=== PATIENT | female | born 1970 | race African-American/Black ===

== ENCOUNTER 2017-03-16 00:34 | Emergency (ER) | payer OTHER ==
[2017-03-16] MEDS ORDERED: AZITHROMYCIN 250 MG TABLET (FP) PO STA (01:37)
--- NOTE | 2017-03-16 01:37 | PDOC ---
History of Present Illness - General History Source: Patient <Gurvinder Sanz - Last Filed: 03/16/17 01:39> - General History Source: Patient Exam Limitations: No Limitations - History of Present Illness Initial Comments: 03/16/17 01:51 The patient is a 46 year old female with significant past medical history of breast CA who presents to the ED for less than 24 hours of sore throat and bilateral ear pain. Patient reports she was recently treated for pharyngitis with cipro and once she completed her course, her symptoms have flared up again. She also reports fever tmax 101 and generalized malaise. The patient denies diaphoresis, chills, cough, SOB, chest pain, and palpitations. The patient denies abdominal pain, nausea, vomiting, and diarrhea. Allergies: penicillin Social History: No alcohol, tobacco, or drug use reported. Past Surgical History: None reported PCP: None reported <Zully Cerda - Last Filed: 03/16/17 01:52> - General Chief Complaint: Sore Throat Stated Complaint: SORE THROAT, EAR PAIN Time Seen by Provider: 03/16/17 01:34 Past History <Gurvinder Sanz - Last Filed: 03/16/17 01:39> <Zully Cerda - Last Filed: 03/16/17 01:52> - Past Medical History Home Medications: Ambulatory Orders Azithromycin [Zithromax -] 250 mg PO UTDICT #6 tab 03/16/17 Review of Systems - Review of Systems Able to Perform ROS?: Yes Comments:: 03/16/17 01:51 CONSTITUTIONAL: +fever, generalized malaise Absent: no chills, no fatigue EYES: Absent: visual changes ENT: +bilateral ear pain, sore throat ARDIOVASCULAR: Absent: chest pain, no palpitations RESPIRATORY: Absent: cough, no SOB GI: Absent: abdominal pain, no nausea, no vomiting, no constipation, no diarrhea GENITOURINARY: Absent: dysuria, no frequency, no hematuria MUSCULOSKELETAL: Absent: back pain, no arthralgia, no myalgia SKIN: Absent: rash NEURO: Absent: headache <Zully Cerda - Last Filed: 03/16/17 01:52> *Physical Exam - Vital Signs Last Vital Signs Temp Pulse Resp BP Pulse Ox 98.5 F 83 19 116/84 98 03/16/17 01:36 03/16/17 01:36 03/16/17 01:36 03/16/17 01:36 03/16/17 01:36 - Physical Exam Comments: 03/16/17 01:52 GENERAL: Well-appearing, well-nourished. No apparent distress. HEENT: Normocephalic, atraumatic. PERRL, EOM intact. Minimal erythema of the posterior pharynx with no exudates. No TM bulging, dullness or erythema. CARDIOVASCULAR: Normal S1, S2. Regular rate and rhythm. PULMONARY: Clear to auscultation bilaterally. ABDOMEN: Soft, non-distended, non-tender. EXTREMITIES: Normal ROM in all four extremities. No gross deformities. SKIN: Warm, dry. No rash NEUROLOGICAL: No focal neurological deficits. <Zully Cerda - Last Filed: 03/16/17 01:52> Medical Decision Making - Medical Decision Making 03/16/17 01:40 Dr. Sanz: The scribe's documentation has been prepared under my direction and personally reviewed by me in its entirery. I confirm that the note above accurately reflects all work, treatment, procedures, and medical decision making performed by me. <uGrvinder Sanz - Last Filed: 03/16/17 01:39> *DC/Admit/Observation/Transfer - Discharge Dispostion Admit: No <Gurvinder Sanz - Last Filed: 03/16/17 01:39> - Attestations Scribe Attestion: 03/16/17 01:52 Documentation prepared by Zully Cerda, acting as medical laboratory specialist for Gurvinder Sanz MD/. <Zully Cerda - Last Filed: 03/16/17 01:52> Diagnosis at time of Disposition: Sore throat and laryngitis - Discharge Dispostion Disposition: HOME Condition at time of disposition: Stable - Prescriptions Prescriptions: Azithromycin [Zithromax -] 250 mg PO UTDICT #6 tab - Referrals Referrals: STAFF,NOT ON [Primary Care Provider] - Lona Davalos MD [Staff Physician] - - Patient Instructions Printed Discharge Instructions: Sore Throat
[2017-03-16 01:43] VITALS: BP 116/84; PULSE 83; TEMP 98.5; BMI 26.6
[2017-03-16] MEDS ORDERED: AZITHROMYCIN 250 MG TABLET (FP) ONE (01:50)
== END 2017-03-16 02:06 | disposition home or self-care (01) ==
LOC: JER 00:34 → SUPCPDRO 00:34 → JER 02:06
DX: J04.0 Acute laryngitis (principal); J02.9 Acute pharyngitis, unspecified; Z85.3 Personal history of malignant neoplasm of breast
CPT/HCPCS: 99281-25

== ENCOUNTER 2019-08-11 11:20 | Emergency (ER) | payer OTHER ==
[2019-08-11 11:33] VITALS: BP 120/81; PULSE 95; TEMP 97.5; BMI 24.7
[2019-08-11] MEDS ORDERED: IBUPROFEN 400 MG TABLET (FP) PO ONE ×2 (11:53→11:56)
--- NOTE | 2019-08-11 11:53 | PDOC ---
History of Present Illness - General Chief Complaint: Injury Stated Complaint: RT WRIST PAIN Time Seen by Provider: 08/11/19 11:28 History Source: Patient Exam Limitations: No Limitations Past History - Travel Traveled outside of the country in the last 30 days: No Close contact w/someone who was outside of country & ill: No - Past Medical History Allergies/Adverse Reactions: Allergies Allergy/AdvReac Type Severity Reaction Status Date / Time Penicillins Allergy Verified 08/11/19 11:25 Home Medications: Ambulatory Orders Arm Brace [Wrist Brace] 1 each MC DAILY #1 each 08/11/19 Arm Brace [Wrist Brace] 1 each MC ONCE #1 each 08/11/19 Aspirin 81 mg PO DAILY 08/11/19 Gabapentin 300 mg PO DAILY 08/11/19 Ibuprofen 600 mg PO Q6H #30 tablet 08/11/19 Tamoxifen Citrate 20 mg PO DAILY 08/11/19 Cancer: Yes (Breast) COPD: No - Immunization History Immunization Up to Date: No - Psycho Social/Smoking Cessation Hx Smoking History: Never smoked Have you smoked in the past 12 months: No Information on smoking cessation initiated: No Hx Alcohol Use: No Drug/Substance Use Hx: No Substance Use Type: None Review of Systems - Review of Systems Able to Perform ROS?: Yes Comments:: 08/11/19 11:56 CONSTITUTIONAL: Absent: fever, chills, diaphoresis, generalized weakness, malaise, loss of appetite HEENT: Absent: rhinorrhea, nasal congestion, throat pain, throat swelling, difficulty swallowing, mouth swelling, ear pain, eye pain, visual Changes MUSCULOSKELETAL: Present: R wrist pain Absent: myalgia, arthralgia, joint swelling SKIN: Absent: rash, itching, pallor NEUROLOGIC: Absent: headache, focal weakness or paresthesias, dizziness, unsteady gait, seizure, mental status changes, bladder or bowel incontinence PSYCHIATRIC: Absent: anxiety, depression, suicidal or homicidal ideation, hallucinations. Is the patient limited [place] proficient: No *Physical Exam - Vital Signs Last Vital Signs Temp Pulse Resp BP Pulse Ox 97.5 F L 95 H 17 120/81 99 08/11/19 11:26 08/11/19 11:26 08/11/19 11:26 08/11/19 11:26 08/11/19 11:26 - Physical Exam Comments: 08/11/19 13:00 GENERAL: The patient is awake, alert, and fully oriented, in no acute distress. HEAD: Normal with no signs of trauma. EYES: Pupils equal, round and reactive to light, extraocular movements intact, sclera anicteric, conjunctiva clear. EXTREMITIES: Tender to palpation of the ulnar aspect of the right distal radius. Positive Arcenio's test. Negative Phalen's testing and Tinel's testing. Normal range of motion, no edema. NEUROLOGICAL: Normal speech, normal gait. PSYCH: Normal mood, normal affect. SKIN: Warm, Dry, normal turgor, no rashes or lesions noted. Medical Decision Making - Medical Decision Making 08/11/19 13:07 The patient is a 49-year-old female with past medical history of breast cancer, in remission, presents to the ER today with right wrist pain. She is right- hand dominant. She states that she was moving some large furniture approximately one week ago and noticed the pain started after moving heavy furniture. She said it increased over the past week so she came to the ER for evaluation. Denies numbness and tingling weakness to the affected extremity. A/P: Right wrist sprain/de Quervain's On exam patient with tender to palpation of the ulnar aspect of the right distal radius. Patient is grossly neurologically intact, PMS intact of the right hand. X-ray shows some increased space between the ulna and carpal bones. Possible sprain We will place patient in a wrist splint and [place] wrap for support and have her follow up with orthopedics. Motrin given with relief of symptoms. Discharge home I discussed the physical exam findings, ancillary test results and final diagnoses with the patient. I answered all of the patient's questions. The patient was satisfied with the care received and felt comfortable with the discharge plan and treatment plan. The Patient agrees to follow up with the primary care physician/specialist within 24-72 hours. Return precautions were given. Discharge - Discharge Information Problems reviewed: Yes Clinical Impression/Diagnosis: Wrist sprain Qualifiers: Encounter type: initial encounter Laterality: right Qualified Code(s): S63.501A - Unspecified sprain of right wrist, initial encounter Condition: Stable Disposition: HOME - Admission No - Additional Discharge Information Prescriptions: Arm Brace [Wrist Brace] 1 each DAILY #1 each Arm Brace [Wrist Brace] 1 each ONCE #1 each Ibuprofen 600 mg PO Q6H #30 tablet - Follow up/Referral Referrals: Gonzalo Boyd MD [Staff Physician] - Sebastian Mccall MD [Staff Physician] - - Patient Discharge Instructions Patient Printed Discharge Instructions: DI for Wrist Pain Additional Instructions: You sprained your wrist. Your x-ray was negative for broken bones. Please keep your wrist elevated while at rest above the level of your heart to reduce swelling. You may take Motrin 800 mg every 8 hours to help reduce pain and swelling. Please ice the area for 20 minute intervals at least 5 times a day to help reduce swelling. Please wear the wrist splint at night Please follow-up with orthopedics in 1 week if your symptoms are not improving. Return to the emergency department if you have worsening pain, or unable to walk , numbness and tingling of the foot, or had any changes in her symptoms. - Post Discharge Activity Work/Back to School Note: Back to Work
== END 2019-08-11 12:34 | disposition home or self-care (01) ==
LOC: JERFT 11:20
PROC: 2W3CX1Z Immobilization of Right Lower Arm using Splint (ICD-10-PCS; principal; 2019-08-11)
DX: S63.501A Unspecified sprain of right wrist, initial encounter (principal); Z85.3 Personal history of malignant neoplasm of breast; Z88.0 Allergy status to penicillin
CPT/HCPCS: 29126; 73110-TC-RT-FY; 73130-TC-RT-FY; 99281-25

== ENCOUNTER 2020-03-21 14:51 | Emergency (ER) | payer OTHER ==
--- NOTE | 2020-03-21 15:00 | PDOC ---
Rapid Medical Evaluation Chief Complaint: Pain, Acute Time Seen by Provider: 03/21/20 14:53 Medical Evaluation: Allergies Allergy/AdvReac Type Severity Reaction Status Date / Time Penicillins Allergy Verified 03/21/20 14:55 03/21/20 14:58 I performed a brief in-person evaluation of this patient. Pt is a 49 y/o with h/o breast cancer who presents to the ED with complaint of mid/lower abdominal pain for the last 3-4 days. Had reconstructive breast surgery, oophorectomy in the past. Vomited last on Wednesday, diarrhea last on Wednesday. No fevers or nausea. Pertinent physical exam findings: periumbilical and RLQ abd tender to palp, + distention. I have ordered the following: labs, ctap with IV contrast, saline lock Patient to proceed to ED for further evaluation. Discharge Disposition - Diagnosis Abdominal pain - Referrals - Patient Instructions - Post Discharge Activity
[2020-03-21 15:31] VITALS: BP 118/70; PULSE 84; TEMP 98.4; BMI 30.2
[2020-03-21 16:21] LABS: BASO % 0.8 % (0-2.0); EOS % 3.1 % (0-4.5); HEMATOCRIT 37.4 % (32.4-45.2); HEMOGLOBIN 12.3 GM/dL (10.7-15.3); LYMPH % 33.7 % (8-40); MCH 28.8 pg (25.7-33.7); MCHC 32.8 g/dl (32.0-36.0); MEAN CELL VOLUME 87.8 fl (80-96); MEAN PLT VOLUME 8.4 fl (7.5-11.1); MONO % 6.3 % (3.8-10.2); NEUT % 56.1 % (42.8-82.8); PLATELET COUNT 343 K/MM3 (134-434); RBC 4.25 M/mm3 (3.60-5.2); RDW 14.4 % (11.6-15.6); WHITE BLOOD COUNT 7.3 K/mm3 (4.0-10.0)
[2020-03-21 16:23] LABS: URINE APPEARANCE CLEAR; URINE BILIRUBIN NEGATIVE (NEGATIVE); URINE COLOR YELLOW; URINE GLUCOSE (UA) NEGATIVE (NEGATIVE); URINE KETONE NEGATIVE (NEGATIVE); URINE LEUK ESTERASE NEGATIVE (NEGATIVE); URINE NITRITE NEGATIVE (NEGATIVE); URINE PROTEIN NEGATIVE (NEGATIVE)
[2020-03-21 16:47] LABS: ALBUMIN 3.7 g/dl (3.4-5.0); BILIRUBIN,TOTAL 0.4 mg/dL (0.2-1); BLOOD UREA NITROGEN 8.2 mg/dL (7-18); CALCIUM 9.5 mg/dL (8.5-10.1); CREATININE 0.9 mg/dL (0.55-1.3); POTASSIUM 3.9 mmol/L (3.5-5.1); TOT PROT 7.4 g/dl (6.4-8.2)
--- NOTE | 2020-03-21 18:59 | PDOC ---
History of Present Illness - General Chief Complaint: Pain, Acute Stated Complaint: ABD PAIN Time Seen by Provider: 03/21/20 14:53 History Source: Patient Exam Limitations: No Limitations - History of Present Illness Initial Comments: 03/21/20 18:55 49-year-old female history of breast cancer in remission reports pain to right lower quadrant and periumbilical area waxing and waning for 3 days. Had one episode of vomiting 3 days ago one episode of nonbloody diarrhea 2 days ago. Had normal bowel movement today. Denies fever, chills, recent travel, recent antibiotic use, sick contacts, chest pain, shortness of breath, urinary symptoms or any other complaints. Patient did not take any pain medication today, took acetaminophen yesterday. ROS: Abdominal pain PE: GENERAL: well-appearing, NAD HEAD: NCAT EYES: Pupils equal, round and reactive to light, sclera anicteric, conjunctiva clear ENT: pharynx: no erythema, no exudate, uvula midline NECK: supple CHEST: nontender RESP: clear, no w/r/r CARDIO: rrr, no m/g/r ABD: +BS, soft, tenderness to right lower quadrant, no rebound or guarding, no distention noted BACK: no midline spinal ttp, no CVAT EXTREMITIES: Normal range of motion, no edema NEUROLOGICAL: Normal speech, normal gait SKIN: Warm, Dry Is this a multiple visit Asthma Patient?: No Past History - Medical History Allergies/Adverse Reactions: Allergies Allergy/AdvReac Type Severity Reaction Status Date / Time Penicillins Allergy Verified 03/21/20 14:55 Home Medications: Ambulatory Orders Arm Brace [Wrist Brace] 1 each MC DAILY #1 each 08/11/19 Arm Brace [Wrist Brace] 1 each MC ONCE #1 each 08/11/19 Aspirin 81 mg PO DAILY 08/11/19 Gabapentin 300 mg PO DAILY 08/11/19 Ibuprofen 600 mg PO Q6H #30 tablet 08/11/19 Tamoxifen Citrate 20 mg PO DAILY 08/11/19 Cancer: Yes (Breast) COPD: No - Immunization History Immunization Up to Date: No - Psycho-Social/Smoking History Smoking History: Current every day smoker Have you smoked in the past 12 months: No Number of Cigarettes Smoked Daily: 2 Information on smoking cessation initiated: Yes - Substance Abuse Hx (Audit-C & DAST Scrn) How often the patient has six or more drinks on one occasion: Monthly Score: In Men: 4 or > Positive; In Women: 3 or > Positive: 2 Screen Result (Pos requires Nsg. Audit-10AR): Negative In the last yr the pt used illegal drug/Rx for NonMed reason: No Score: Yes response is considered Positive: 0 Screen Result (Positive result requires Nsg. DAST-10): Negative *Physical Exam - Vital Signs Last Vital Signs Temp Pulse Resp BP Pulse Ox 98.4 F 84 16 118/70 100 03/21/20 14:56 03/21/20 14:56 03/21/20 14:56 03/21/20 14:56 03/21/20 14:56 ED Treatment Course - LABORATORY CBC & Chemistry Diagram: 03/21/20 15:40 03/21/20 15:40 - ADDITIONAL ORDERS Additional order review: Laboratory Results 03/21/20 03/21/20 15:40 15:30 Sodium 139 Potassium 3.9 Chloride 105 Carbon Dioxide 28 Anion Gap 6 L BUN 8.2 Creatinine 0.9 Est GFR (CKD-EPI)AfAm 88.25 Est GFR (CKD-EPI)NonAf 76.14 Random Glucose 84 Calcium 9.5 Total Bilirubin 0.4 AST 21 ALT 22 Alkaline Phosphatase 69 Total Protein 7.4 Albumin 3.7 Lipase 139 Urine Color Yellow Urine Appearance Clear Urine pH 7.[address] 1[address]015 Urine Protein Negative Urine Glucose (UA) Negative Urine Ketones Negative Urine Blood Negative Urine Nitrite Negative Urine Bilirubin Negative Urine Urobilinogen 1.0 Ur Leukocyte Esterase Negative 03/21/20 15:40 RBC 4.25 MCV 87.8 MCHC 32.8 RDW 14.4 MPV 8.4 Neutrophils % 56.1 Lymphocytes % 33.7 Monocytes % 6.3 Eosinophils % 3.1 Basophils % 0.8 Medical Decision Making - Medical Decision Making 03/21/20 18:57 49-year-old female history of breast cancer in remission reports pain to right lower quadrant and periumbilical area waxing and waning for 3 days. Had one episode of vomiting 3 days ago one episode of nonbloody diarrhea 2 days ago. Had normal bowel movement today. Denies fever, chills, recent travel, recent antibiotic use, sick contacts, chest pain, shortness of breath, urinary symptoms or any other complaints. Patient did not take any pain medication today, took acetaminophen yesterday. Labs and UA reviewed with patient CTAP: No evidence of acute appendicitis, no free air or free fluid, slightly enlarged nonspecific retrocrural lymph nodes measuring up to 1.5 x 1.3 cm. Copy of CTAP report given to patient Advised patient to follow-up with primary care doctor Return precautions discussed Discharge - Discharge Information Problems reviewed: Yes Clinical Impression/Diagnosis: Abdominal pain Qualifiers: Abdominal location: right lower quadrant Qualified Code(s): R10.31 - Right lower quadrant pain Condition: Stable Disposition: HOME - Admission No - Follow up/Referral - Patient Discharge Instructions Additional Instructions: Follow-up with your doctor within 1 week Take acetaminophen 1000 mg every 6 hours as needed for pain Return to ED if fever, chills, worsening abdominal pain, nausea, vomiting, diarrhea or any concerning symptom - Post Discharge Activity
== END 2020-03-21 19:08 | disposition home or self-care (01) ==
LOC: JER 14:51
DX: R10.31 Right lower quadrant pain (principal)
CPT/HCPCS: 36415; 74177-TC; 80053; 81003; 83690; 85025; 87086; 99285-25; Q9967